=== PATIENT | male | born 1935 | race Caucasian/White ===

== ENCOUNTER → 2019-12-26 | Outpatient (CLI) | payer OTHER ==
--- NOTE | 2020-01-03 08:44 | REP ---
PET/CT: HISTORY: Restaging follicular lymphoma. COMPARISONS: Report is delayed pending retrieval of outside prior studies. Comparison is made with report of a prior PET/CT study dated 04/06/2019 from another facility describing a complete response to therapy. Comparison PET/CT study is also reviewed from 03/23/2018. TECHNIQUE: 46 minutes following the intravenous injection of a 9.25 mCi dose of F-18 FDG, three-dimensional PET scintigraphy is acquired from the skull base to the proximal thighs. Triplanar noncontrast CT scanning is acquired through the same anatomic range for attenuation correction, and image registration with scan parameters optimized to minimize radiation exposure to the patient. PET scintigraphy and CT datasets were fused and displayed on a workstation with multiplanar and projection display capability. PET/CT FINDINGS: Head and neck soft tissues show no abnormal toña uptake. There is mildly increased uptake in the submandibular glands bilaterally and to a lesser extent, the parotid glands consistent with normal variant. Some skeletal muscle uptake is seen. There is mildly increased metabolic activity in fatty tissue in the interspinous spaces in the lower cervical spine again consistent with normal variant. No mass lesion is seen here. No axillary or supraclavicular adenopathy or hypermetabolic uptake is seen. No mediastinal adenopathy or hypermetabolic uptake is observed. There is a small right pleural effusion. A large hiatal hernia is seen. Cardiomegaly is observed with pacemaker. No abnormal hypermetabolic uptake is seen within the thorax. In the abdomen and pelvis normal hepatic, splenic, gastrointestinal and genitourinary FDG accumulation is seen. No abnormal abdominal or pelvic hypermetabolic uptake is seen. IMPRESSION: Normal PET scintigraphy. No abnormal toña hypermetabolic uptake is appreciated. Electronically Signed by Omkar Palencia MD 01/03/2020 10:56 A
== END ==
LOC: M PLARAD 09:07
PROVIDERS: ATTEND Family Medicine
DX: C82.99 Follicular lymphoma, unspecified, extranodal and solid organ sites (principal); K44.9 Diaphragmatic hernia without obstruction or gangrene; J90 Pleural effusion, not elsewhere classified; I51.7 Cardiomegaly; Z95.0 Presence of cardiac pacemaker; R63.4 Abnormal weight loss
CPT/HCPCS: 78815; A9552

== ENCOUNTER → 2023-05-10 | Outpatient (CLI) | payer MEDICARE, OTHER | LOC: M RAD 10:04 | PROVIDERS: ATTEND Internal Medicine | DX: I70.203 Unspecified atherosclerosis of native arteries of extremities, bilateral legs (principal) ==